=== PATIENT | male | born 1995 | race Hispanic/Latino ===

== ENCOUNTER 2024-07-11 09:39 | Emergency (ER) | payer BC ==
[~2024-07-11] VITALS: Ht 175.3 cm; Wt 104.3 kg
[2024-07-11] MEDS: dexaMETHasone SOD PHOSPHATE 4 MG/ML 1ML VIAL IM ONE (10:19)
[2024-07-11] MEDS: acetaMINOPHEN/coDEINE 120/12MG 5ML PO ONE (10:20)
[2024-07-11] MEDS ORDERED: FLUT16H NS (10:42)
[2024-07-11] MEDS ORDERED: P-EP-642 PO (10:42)
--- NOTE | 2024-07-11 10:42 | ERN ---
General Chief Complaint: Congestion Stated Complaint: FLU SYMPTOMS Time Seen by MD: 10:05 Source: patient History of Present Illness Initial Comments Patient is a 29-year-old male coming in complaining of nasal and facial discomfort. Patient states that he was recently diagnosed with influenza a finishing treatment but two days ago he started having some nasal congestion with facial discomfort. A Long with this patient states that he has been having a cough. Allergies: Coded Allergies: No Known Drug Allergies (Unverified Allergy, Unknown, 07/11/24) Past Medical History Past Medical History: Arthritis, Fibromyalgia Past Surgical History: Other Surgical History Other: EAR SURGERY ROS Dictation CONSTITUTIONAL: NO CHILLS, NO FEVER, NO WEAKNESS, NO DIAPHORESIS, NO MALAISE. HEAD/FACE: NO SIGNS OF TRAUMA. EENT: NO EYE PAIN, NO BLURRED VISION, NO TEARING, NO DOUBLE VISION, NO EAR P AIN, NO EAR DISCHARGE, NO NOSE PAIN,NASAL CONGESTION, NO THROAT PAIN, NO THROAT SWELLING, NO MOUTH PAIN. RESPIRATORY: COUGH, NO ORTHOPNEA, NO SOB, NO STRIDOR, NO WHEEZING. CARDIOVASCULAR: NO CHEST PAIN, NO EDEMA, NO PALPITATIONS, NO SYNCOPE. GASTROINTESTINAL/ABDOMINAL: NO ABDOMINAL PAIN, NO CONSTIPATION, NO DIARRHEA, NO NAUSEA, NO VOMITING. GENITOURINARY: NO ABNORMAL DISCHARGE, NO DYSURIA, NO FREQUENT URINATION, NO HEMATURIA. NO COMPLAINTS OF PAIN IN THE GENITALS. MUSCULOSKELETAL: NO BACK PAIN, NO GOUT, NO JOINT PAIN, NO JOINT SWELLING, NO MUSCLE PAIN, NO MUSCLE STIFFNESS, NO NECK PAIN. INTEGUMENTARY: NO CHANGE IN COLOR, NO CHANGE IN HAIR/NAILS, NO DRYNESS, NO LESION, NO LUMPS, NO RASH. NEUROLOGICAL/PSYCH: NO ANXIETY, NOT DEPRESSED, NO EMOTIONAL PROBLEM, NO HEADACHE, NO NUMBNESS, NO PRE-EXISTING DEFICIT, NO HISTORY OF SEIZURES, NO TREMORS, NO WEAKNESS. HEMATOLOGIC/LYMPHATIC: NOT ANEMIC, NO HISTORY OF BLOOD CLOTS, NO APPARENT BLEEDING, NO BRUISING, GLANDS NOT SWOLLEN. ALL SYSTEMS NEGATIVE, EXCEPT NOTED. Physical Exam Physical Exam Dictation VITAL SIGNS: REVIEWED. GENERAL APPEARANCE: ALERT, ORIENTED X3, NO ACUTE DISTRESS, OBESE. HEAD AND FACE: NON-TRAUMATIC. FRONTAL SINUS TENDERNESS ON PALPATION EYES: PERRL, PINK CONJUNCTIVAS, EYELID NO TRAUMA, ANTERIOR CHAMBER CLEAR. EARS: PINNAS INTACT AND NO SIGNS OF TRAUMA OR ERYTHEMA. EAR CANALS CLEAR AND NO DISCHARGE. TMS NO ERYTHEMA. NOSE: NO DISCHARGE, NO BLEEDING. BILATERAL NASAL TURBINATE SWELLING MILD DI SCHARGE OROPHARYNX: MOUTH NORMAL, TEETH NO CARIES, TONGUE PINK. PHARYNX CLEAR, NO ERYTHEMA. TONSILS NO EXUDATES, NO ABSCESSES NOTED. MUCOUS MEMBRANE MOIST. NECK: SUPPLE, NON-TENDER, NO THYROMEGALY, NO MASSES, NO JVD, NO BRUITS. BREAST: DEFERRED. CHEST: NO TENDERNESS, NO CREPITUS, NO PARADOXICAL MOVEMENT, NO RETRACTIONS. LUNGS: CLEAR, WELL-VENTILATED, SYMMETRIC, NO RALES, NO WHEEZING, NO RHONCHI, NO STRIDOR, GOOD BREATH SOUNDS BILATERALLY. HEART: REGULAR RATE, REGULAR RHYTHM, NO MURMUR, NO GALLOPS. VASCULAR: NO PERIPHERAL EDEMA. ABDOMEN: SOFT, POSITIVE BOWEL SOUNDS, NONDISTENDED, NO GUARDING, NONTENDER, NO REBOUND, NO MASSES NO HEPATOMEGALY, NO SPLENOMEGALY, NO ROMERO'S SIGN, NO HERNIAS. RECTAL: DEFERRED. GENITAL: DEFERRED. NEUROLOGICAL: NORMAL SPEECH, GROSS MOTOR FUNCTION INTACT, GROSS SENSORY FUNCTION INTACT. MUSCULOSKELETAL: NECK NONTENDER, FULL RANGE OF MOTION, BACK NONTENDER, FULL RANGE OF MOTION. EXTREMITIES: NONTENDER, FULL RANGE OF MOTION. SKIN: COLOR PINK, DRY, NO TURGOR, NO RASH, NO LACERATIONS, NO ABRASIONS, NO CONTUSIONS. LYMPHATICS: DEFERRED. Results Laboratory and Microbiology Labs Reviewed?: Yes MDM MDM: DIFFERENTIAL DIAGNOSIS: SINUSITIS, URI, RATIONALE: TESTS CONSIDERED AND ORDERED SECONDARY TO SHARED DECISION MAKING INCLUDE: PREVIOUS OUTSIDE RECORDS REVIEWED: OLD ER VISITS. RISK OF COMPLICATION AND/OR MORBIDITY OR MORTALITY OF PATIENT MANAGEMENT: NONE MEDICATIONS-PER MEDICATION RECONCILIATION PATIENT IS A 29-YEAR-OLD MALE COMING IN COMPLAINING OF URI SYMPTOMS. ON PHYSICAL EXAM THERE IS NASAL TURBINATE SWELLING BILATERAL LUNGS ARE CLEAR TO AUSCULTATION VITALS HAS BEEN NORMAL LIMITS. PATIENT WILL BE DISCHARGED IN STABLE CONDITION WITH A DIAGNOSIS OF SINUSITIS MEDICATION WILL BE PROVIDED FOR SYMPTOMATIC RELIEF. ED Course Orders Procedure Category Date Status Time Dexamethasone 4mg/Ml PHA 07/11/24 Complete 1ml Vial (Dexametha 10:30 Acetaminophen-Codeine PHA 07/11/24 Complete Elixer (Tylenol-Co 10:30 Current Medications Medications (Trade) Dose Ordered Sig/Jacky Route PRN Reason Start Time Stop Time Status Last Admin Dose Admin Acetaminophen/ Codeine Phosphate (TYLenol-coDEINE (120/12MG 5ML) ELIXIR) 10 ml ONCE ONCE PO 07/11/24 10:30 07/11/24 10:31 DC 07/11/24 10:20 Dexamethasone Sodium Phosphate (dexaMETHasone 4MG/ML 1ML VIAL) 4 mg ONCE ONCE IM 07/11/24 10:30 07/11/24 10:31 DC 07/11/24 10:19 Vital Signs Date Time Temp Pulse Resp B/P (MAP) Pulse Ox O2 Delivery O2 Flow Rate FiO2 07/11/24 09:40 98.8 91 16 115/76 99 Room Air 0 DX & DISP Disposition: Discharge Departure Impression: Primary Impression: Acute sinusitis Condition: Stable Scripts Loratadine/Pseudoephedrine (Loratadine-D 24Hr Tablet) 10 Mg-240 Mg Tab.er.24h 1 TAB PO DAILY for 7 Days, #7 TAB 0 Refills Prov: NIDA HERNANDEZ MD 07/11/24 Fluticasone Propionate (Flonase Nasal [place]) 50 Mcg/Actuation [place] 2 SPRAY NS DAILY, #16 GM 0 Refills Prov: NIDA HERNANDEZ MD 07/11/24 Additional Instructions: FOLLOW-UP WITH PRIMARY CARE PROVIDER IN 1 TO 2 DAYS. TAKE MEDICATIONS DIRECTED HERE IN THE EMERGENCY ROOM. OKAY TO CONTINUE HOME MEDICATIONS UNLESS OTHERWISE DISCUSSED DURING YOUR VISIT IN THE EMERGENCY ROOM TODAY. RETURN TO YOUR NEAREST EMERGENCY ROOM IF SYMPTOMS WORSEN OR IF THERE IS NO IMPROVEMENT. CALL 911 IF YOU NEED IMMEDIATE ASSISTANCE. TAKE TYLENOL [id number] NEEDED AND IF NO CONTRAINDICATIONS ARE PRESENT. INCREASE ORAL HYDRATION. A WOUND CULTURE OR URINE CULTURE WAS ORDERED HERE IN THE EMERGENCY ROOM DEPARTMENT PLEASE FOLLOW-UP WITH PRIMARY CARE PROVIDER AND ADVISE THEM TO GET REPEAT PORTS FROM OUR FACILITY. IF YOU HAD ANY RUBEN WRAP/SPLINTS THAT WERE APPLIED HERE, PLE ASE DO NOT REMOVE THEM UNTIL YOU SEE YOUR PRIMARY CARE OR SPECIALTY. REFERRALS: Referrals: ALO DODSON PA-C (PCP) Time of Disposition: 10:41 NIDA HERNANDEZ MD July 11, 2024 10:42
[2024-07-11 10:44] VITALS: BP 121/75; PULSE 85; RESP 16; TEMP 98.8; O2SAT 99
== END 2024-07-11 11:12 | disposition home or self-care (01) ==
LOC: EDH 09:39
DX: J01.90 Acute sinusitis, unspecified (principal); M19.90 Unspecified osteoarthritis, unspecified site; M79.7 Fibromyalgia
CPT/HCPCS: 99284; 96372; J1100